=== PATIENT | male | born 1965 | race Hispanic/Latino ===

== ENCOUNTER 2024-07-11 09:50 | Observation (INO) | payer OTHER ==
[~2024-07-11] VITALS: Ht 167.6 cm; Wt 105.2 kg
[2024-07-11] VITALS (9 sets, daily range): BP systolic 127–144; BP diastolic 67–82; PULSE 69–78; RESP 16–18; TEMP 97.9–99; O2SAT 74–100
[2024-07-11] MEDS ORDERED: IOPAMIDOL 370 MG/ML 100 ML INFUS..BTL INJ ONE (11:48)
[2024-07-11] MEDS ORDERED: AMLODIPINE BESYL5 MG PO (14:46)
[2024-07-11] MEDS ORDERED: LISINOPRIL10 MG PO (14:46)
[2024-07-11] MEDS ORDERED: HYDRALAZINE HCL10 MG PO (14:46)
[2024-07-11 16:39] LABS: TROPONIN I 0.029 ng/mL (0-0.300)
[2024-07-11] MEDS: MECLIZINE HCL 12.5 MG TAB PO PRN (18:12)
[2024-07-11] MEDS ORDERED: ACETAMINOPHEN 325 MG TAB PO PRN (21:15)
[2024-07-11] MEDS: HYDRALAZINE HCL 10 MG TAB PO SCH (21:19)
[2024-07-12 03:25] VITALS: BP 119/74; PULSE 75; RESP 18; TEMP 98.3; O2SAT 99
[2024-07-12 05:46] LABS: BASOPHILS % 0.4 % (0.0-1.0); EOSINOPHILS # (AUTO) 0.2 (0.0-0.4); EOSINOPHILS % 3.2 % (0.0-6.0); HEMATOCRIT 42.6 % (38.2-49.6); LYMPHOCYTES # (AUTO) 2.2 (1.0-3.2); LYMPHOCYTES % 32.8 % (18.0-39.1); MEAN CORPUSCULAR HEMOGLOBIN 32.6 pg (28-32); MEAN CORPUSCULAR HGB CONC 32.9 g/dL (31-35); MEAN CORPUSCULAR VOLUME 99.3 fL (81-99); MONOCYTES # (AUTO) 0.7 (0.2-0.8); MONOCYTES % 9.6 % (4.4-11.3); NEUTROPHILS # (AUTO) 3.6 (2.1-6.9); NEUTROPHILS % 53.7 % (38.7-80.0); PLATELET COUNT 198 x10e3/uL (140-360); RED BLOOD COUNT 4.29 x10e6/uL (4.3-5.7); RED CELL DISTRIBUTION WIDTH 12.1 % (11.7-14.4); WHITE BLOOD COUNT 6.79 x10e3/uL (4.8-10.8)
[2024-07-12 06:12] LABS: ANION GAP 11.7 mmol/L (8-16); CHOL/HDL RATIO 5.2 (3.9-4.7); CREATININE, SERUM 0.81 mg/dL (0.72-1.25); POTASSIUM 3.7 mmol/L (3.5-5.1)
[2024-07-12 06:21] LABS: TROPONIN I 0.012 ng/mL (0-0.300)
[2024-07-12 06:28] LABS: MAGNESIUM 1.9 MG/DL (1.3-2.1)
[2024-07-12 06:51] LABS: THYROID STIMULATING HORMONE 0.63 uIU/mL (0.350-4.940)
[2024-07-12] MEDS: HYDRALAZINE HCL 20 MG/ML VIAL IV ONE (07:30)
[2024-07-12 08:00] VITALS: BP 119/74; PULSE 75; RESP 18; TEMP 98.3; O2SAT 99
[2024-07-12 08:17] VITALS: BP 142/89; PULSE 68; RESP 18; TEMP 98.1; O2SAT 95
[2024-07-12] MEDS ORDERED: HYDRALAZINE HCL10 MG PO (10:08)
[2024-07-12] MEDS ORDERED: MECLIZINE HCL12.5 MG PO (10:08)
[2024-07-12] MEDS ORDERED: ROSUVASTATIN CA20 MG PO (10:08)
[2024-07-12] MEDS: AMLODIPINE BESYLATE 10 MG TAB PO SCH (10:25)
[2024-07-12 10:26] VITALS: BP 142/89
[2024-07-12] MEDS: LISINOPRIL 20 MG TAB PO SCH (10:26)
[2024-07-12] MEDS ORDERED: ENOXAPARIN SOD INJ 40 MG/0.4 ML SYR SC SCH (17:00)
[2024-07-12] MEDS ORDERED: CRESTOR 10MG PO SCH (21:00)
== END 2024-07-12 12:05 | disposition home or self-care (01) ==
LOC: FSED 09:59 → ERHOLD 12:06 → MED/SURG2 13:48
PROVIDERS: ADMIT Internal Medicine; ATTEND Internal Medicine
DX: I16.0 Hypertensive urgency (principal); I10 Essential (primary) hypertension; H81.10 Benign paroxysmal vertigo, unspecified ear; R94.31 Abnormal electrocardiogram [ECG] [EKG]; E78.2 Mixed hyperlipidemia; K40.90 Unilateral inguinal hernia, without obstruction or gangrene, not specified as recurrent; E66.9 Obesity, unspecified; Z68.37 Body mass index [BMI] 37.0-37.9, adult; K57.30 Diverticulosis of large intestine without perforation or abscess without bleeding; K76.0 Fatty (change of) liver, not elsewhere classified; F10.90 Alcohol use, unspecified, uncomplicated; Z79.899 Other long term (current) drug therapy
CPT/HCPCS: 36415 ×2; 70450; 74177; 80048; 80053; 80061; 80307; 81003; 82550 ×2; 82553; 83036; 83735; 84443; 84484 ×2; 85025 ×2; 93005 ×2; 99252; 99284; G0378 ×2; J8597; Q9967

== ENCOUNTER 2024-09-15 16:59 | Emergency (ER) | payer OTHER ==
[~2024-09-15] VITALS: Ht 167.6 cm; Wt 105.2 kg
[~2024-09-15 16:59] MED LIST: AMLODIPINE BESYL5 MG PO; HYDRALAZINE HCL10 MG PO; LISINOPRIL10 MG PO; MECLIZINE HCL12.5 MG PO; ROSUVASTATIN CA20 MG PO
[2024-09-15 17:00] VITALS: PULSE 70; RESP 18; TEMP 97
[2024-09-15] MEDS ORDERED: MECLIZINE HCL12.5 MG PO (18:48)
[2024-09-15 21:58] VITALS: BP 119/68; PULSE 70; RESP 18; TEMP 98.3; O2SAT 100
== END 2024-09-15 18:44 | disposition home or self-care (01) ==
LOC: FSED 17:26
DX: R42 Dizziness and giddiness (principal); M54.2 Cervicalgia; R11.0 Nausea; R05.9 Cough, unspecified; R53.83 Other fatigue; I10 Essential (primary) hypertension
CPT/HCPCS: 80048; 85025; 99284